=== PATIENT | male | born 1930 | race Caucasian/White ===

== ENCOUNTER 2017-07-12 13:52 | Emergency (ER) | payer MEDICARE ==
[~2017-07-12 13:52] MED LIST: ASPI-611 PO; CLOP75TA35 PO; MULT-1074 PO; NITR0.4T51 SL
[2017-07-12 15:46] LABS: BASOPHILS % (AUTO) 0.5 % (0-1); EOSINOPHILS # (AUTO) 0.1 X10'3 (0-0.9); EOSINOPHILS % (AUTO) 2.2 % (0-6); HEMATOCRIT 43.1 % (42.0-52.0); HEMOGLOBIN 15.2 g/dl (14.0-17.9); LYMPHOCYTES # (AUTO) 1.1 X10'3 (1.1-4.8); LYMPHOCYTES % (AUTO) 27.5 % (21-51); MEAN CORPUSCULAR HEMOGLOBIN 33.6 PG (27.0-31.0); MEAN CORPUSCULAR HGB CONC 35.3 % (33.0-36.5); MEAN PLATELET VOLUME 7.6 FL (7.4-10.4); MONOCYTES # (AUTO) 0.5 X10'3 (0-0.9); MONOCYTES % (AUTO) 11.7 % (2-12); NEUTROPHILS # (AUTO) 2.3 X10'3 (1.8-7.7); NEUTROPHILS % (AUTO) 58.1 % (42-75); PLATELET COUNT 141 X10'3 (140-440); RED BLOOD COUNT 4.53 X10'6 (4.70-6.10); RED CELL DISTRIBUTION WIDTH 12.7 % (11.5-14.5)
[2017-07-12 16:15] LABS: ALANINE AMINOTRANSFERASE 18 U/L (12-78); ALBUMIN 3.7 G/DL (3.4-5.0); ALBUMIN/GLOBULIN RATIO 0.9 (1.1-1.5); ALKALINE PHOSPHATASE 85 IU/L (46-116); ANION GAP 6 (8-16); ASPARTATE AMINO TRANSFERASE 20 U/L (10-37); BILIRUBIN,TOTAL 0.4 MG/DL (0.1-1.0); BLOOD UREA NITROGEN 27 MG/DL (7-18); BUN/CREATININE RATIO 22.5 (5.4-32.0); CALCIUM 8.8 MG/DL (8.5-10.1); CHLORIDE 108 MMOL/L (99-107); ETHANOL < 0.010 GM/DL (0.0-0.010); GLUCOSE 112 MG/DL (70-104); POTASSIUM 4.6 MMOL/L (3.5-5.1); SODIUM 142 MMOL/L (135-145); TOTAL CARBON DIOXIDE 28.4 MMOL/L (24-32); TOTAL PROTEIN 7.6 G/DL (6.4-8.2); eGFR 57 ML/MIN
[2017-07-12 17:53] LABS: CLARITY,URINE Clear (Clear); COLOR,URINE Yellow (Yellow); GLUCOSE, URINE Negative (Neg); KETONES,URINE Negative (Neg); LEUKOCYTE ESTERASE ,URINE Negative (Neg); NITRITES, URINE Negative (Neg); OCCULT BLOOD,URINE Negative (Neg); PROTEIN,URINE Negative (Neg); UROBILINOGEN,URINE 0.2 E.U/dL (0.2-1.0)
[2017-07-12 17:54] LABS: UA COLLECTION TYPE CLN CATCH MIDSTREAM
[2017-07-12 18:02] LABS: URINE AMPHETAMINE SCREEN NEGATIVE (Neg); URINE BARBITUATE SCREEN NEGATIVE (Neg); URINE BENZODIAZEPINES SCREEN NEGATIVE (Neg); URINE CANNABINOID SCREEN NEGATIVE (Neg); URINE COCAINE SCREEN NEGATIVE (Neg); URINE METHADONE SCREEN NEGATIVE (Neg); URINE OPIATE SCREEN NEGATIVE (Neg); URINE PHENCYCLIDINE SCREEN NEGATIVE (Neg)
[2017-07-12 18:12] VITALS: BP 138/81
[2017-07-12] MEDS ORDERED: nitroGLYCERIN 0.4mg SUBLingual tab SL PRN (19:40)
[2017-07-12] MEDS ORDERED: MULT-1074 PO (21:30)
[2017-07-13] MEDS ORDERED: aspirin 81mg tab.chew PO SCH (08:00)
[2017-07-13] MEDS ORDERED: multivitamins, therapeutics tablet PO SCH (08:00)
[2017-07-13] MEDS ORDERED: clopidogrel 75mg tablet PO SCH (08:00)
== END 2017-07-12 21:27 ==
LOC: ER 13:53
DX: R45.851 Suicidal ideations (principal); F43.0 Acute stress reaction; F43.20 Adjustment disorder, unspecified; I25.2 Old myocardial infarction; E78.00 Pure hypercholesterolemia, unspecified; I25.119 Atherosclerotic heart disease of native coronary artery with unspecified angina pectoris; Z79.82 Long term (current) use of aspirin
CPT/HCPCS: 36415; 80053; 80305; 80320; 81003; 84443; 84484; 85025; 93005; 99285

== ENCOUNTER 2017-07-12 20:10 | Inpatient (IN) | payer MEDICARE ==
[~2017-07-12] VITALS: Ht 165.1 cm; Wt 72.0 kg
[2017-07-12] MEDS ORDERED: nitroGLYCERIN 0.4mg SUBLingual tab SL PRN (21:20)
[2017-07-12] MEDS ORDERED: hydrOXYzine 10 MG tablet PO PRN (21:25)
[2017-07-12] MEDS ORDERED: acetaminophen 325mg tablet PO PRN (21:25)
[2017-07-12] MEDS ORDERED: mag hydrox/Alum hydrox/simeth 30ml oral suspension PO PRN (21:25)
[2017-07-12] MEDS ORDERED: magnesium hydroxide 30ml (MOM) UD suspension PO PRN (21:25)
[2017-07-12] MEDS ORDERED: traZODone 50mg tablet PO PRN (21:25)
[2017-07-12] MEDS ORDERED: hydrOXYzine 25 MG tablet PO PRN (21:25)
[2017-07-12] MEDS ORDERED: MULT-1074 PO (21:30)
[2017-07-12 23:50] VITALS: BP 137/73
[2017-07-13 07:47] VITALS: BP 138/63
[2017-07-13] MEDS: clopidogrel 75mg tablet PO SCH (08:20)
[2017-07-13] MEDS: multivitamins, therapeutics tablet PO SCH (08:20)
[2017-07-13] MEDS: aspirin 81mg tab.chew PO SCH (08:20)
[2017-07-13 19:33] VITALS: BP 132/61
[2017-07-13] MEDS: carVEDilol 3.125mg tablet PO SCH (21:44)
[2017-07-14 08:00] VITALS: BP 137/65
[2017-07-14] MEDS: carVEDilol 3.125mg tablet PO SCH ×2 (08:00→20:00)
[2017-07-14] MEDS: clopidogrel 75mg tablet PO SCH (08:35)
[2017-07-14] MEDS: multivitamins, therapeutics tablet PO SCH (08:35)
[2017-07-14] MEDS: aspirin 81mg tab.chew PO SCH (08:35)
[2017-07-14 20:00] VITALS: BP 116/65
[2017-07-15 08:00] VITALS: BP 99/56
[2017-07-15] MEDS: multivitamins, therapeutics tablet PO SCH (08:00)
[2017-07-15] MEDS: carVEDilol 3.125mg tablet PO SCH ×2 (08:55→20:40)
[2017-07-15] MEDS: clopidogrel 75mg tablet PO SCH (08:55)
[2017-07-15] MEDS: aspirin 81mg tab.chew PO SCH (08:55)
[2017-07-15 19:45] VITALS: BP 120/60
[2017-07-16 08:00] VITALS: BP 137/64
[2017-07-16] MEDS: carVEDilol 3.125mg tablet PO SCH (08:00)
[2017-07-16] MEDS: multivitamins, therapeutics tablet PO SCH (08:00)
[2017-07-16] MEDS: clopidogrel 75mg tablet PO SCH (08:25)
[2017-07-16] MEDS: aspirin 81mg tab.chew PO SCH (08:25)
== END 2017-07-16 10:30 | disposition home or self-care (01) | DRG 880 ==
LOC: ADULT MH 20:10
PROVIDERS: ADMIT Psychiatry & Neurology Psychiatry; ATTEND Psychiatry & Neurology Psychiatry
DX: F41.9 Anxiety disorder, unspecified (principal); R45.851 Suicidal ideations; E78.5 Hyperlipidemia, unspecified; F32.9 Major depressive disorder, single episode, unspecified; I25.10 Atherosclerotic heart disease of native coronary artery without angina pectoris; Z95.5 Presence of coronary angioplasty implant and graft; Z79.82 Long term (current) use of aspirin; Z79.899 Other long term (current) drug therapy
CPT/HCPCS: 87070; 99285

== ENCOUNTER 2018-04-16 05:15 | Emergency (ER) | payer MEDICARE, OTHER ==
[~2018-04-16] VITALS: Ht 157.5 cm; Wt 70.0 kg
[2018-04-16 05:24] VITALS: BP 152/86
== END 2018-04-16 06:12 | disposition home or self-care (01) ==
LOC: ER 05:16
DX: M79.671 Pain in right foot (principal); M79.672 Pain in left foot; I25.10 Atherosclerotic heart disease of native coronary artery without angina pectoris; E78.00 Pure hypercholesterolemia, unspecified; I25.2 Old myocardial infarction; Z95.5 Presence of coronary angioplasty implant and graft; Z79.82 Long term (current) use of aspirin; Z79.899 Other long term (current) drug therapy
CPT/HCPCS: 99281

== ENCOUNTER 2018-06-28 11:38 | Inpatient (IN) | payer MEDICARE, OTHER ==
[~2018-06-28] VITALS: Ht 172.7 cm; Wt 72.0 kg
[2018-06-28 12:54] LABS: BASOPHILS # (AUTO) 0.1 X10'3 (0-0.2); EOSINOPHILS # (AUTO) 0.1 X10'3 (0-0.9); EOSINOPHILS % (AUTO) 1.4 % (0-6); HEMATOCRIT 43.7 % (42.0-52.0); HEMOGLOBIN 14.3 g/dl (14.0-17.9); LYMPHOCYTES % (AUTO) 16.2 % (21-51); MEAN CORPUSCULAR HEMOGLOBIN 31.5 PG (27.0-31.0); MEAN CORPUSCULAR HGB CONC 32.8 % (33.0-36.5); MEAN CORPUSCULAR VOLUME 95.9 FL (78-98); MEAN PLATELET VOLUME 8.5 FL (7.4-10.4); MONOCYTES # (AUTO) 0.7 X10'3 (0-0.9); MONOCYTES % (AUTO) 11.7 % (2-12); NEUTROPHILS # (AUTO) 4.2 X10'3 (1.8-7.7); NEUTROPHILS % (AUTO) 69.7 % (42-75); PLATELET COUNT 198 X10'3 (140-440); RED BLOOD COUNT 4.55 X10'6 (4.70-6.10); RED CELL DISTRIBUTION WIDTH 12.5 % (11.5-14.5); WHITE BLOOD COUNT 6.2 X10'3 (4.5-11.0)
[2018-06-28 13:03] LABS: PARTIAL THROMBOPLASTIN TIME 26 SECONDS (22-32); PROTHROMBIN TIME 10.5 SECONDS (9.0-12.0)
[2018-06-28 13:04] LABS: ALANINE AMINOTRANSFERASE 23 U/L (12-78); ALBUMIN 3.1 G/DL (3.4-5.0); ALBUMIN/GLOBULIN RATIO 0.7 (1.1-1.5); ALKALINE PHOSPHATASE 90 IU/L (46-116); ANION GAP 11 (8-16); ASPARTATE AMINO TRANSFERASE 19 U/L (10-37); BILIRUBIN,TOTAL 0.4 MG/DL (0.1-1.0); BLOOD UREA NITROGEN 38 MG/DL (7-18); BUN/CREATININE RATIO 31.1 (5.4-32.0); CALCIUM 8.8 MG/DL (8.5-10.1); CHLORIDE 105 MMOL/L (99-107); CREATININE 1.22 MG/DL (0.60-1.10); GLUCOSE 100 MG/DL (70-104); POTASSIUM 4.1 MMOL/L (3.5-5.1); SODIUM 143 MMOL/L (135-145); TOTAL CARBON DIOXIDE 27.5 MMOL/L (24-32); TOTAL PROTEIN 7.5 G/DL (6.4-8.2); eGFR 56 ML/MIN
[2018-06-28 13:16] LABS: CLARITY,URINE CLEAR (Clear); COLOR,URINE YELLOW (Yellow); GLUCOSE, URINE NEGATIVE (Neg); KETONES,URINE NEGATIVE (Neg); LEUKOCYTE ESTERASE ,URINE NEGATIVE (Neg); NITRITES, URINE NEGATIVE (Neg); OCCULT BLOOD,URINE TRACE-LYSED (Neg); PH,URINE 5.5 (4.8-8.0); PROTEIN,URINE NEGATIVE (Neg); UROBILINOGEN,URINE 0.2 E.U/dL (0.2-1.0)
[2018-06-28 13:21] LABS: UA COLLECTION TYPE CLN CATCH MIDSTREAM
[2018-06-28 13:22] LABS: BACTERIA,URINE NONE SEEN /HPF (Neg); MUCUS STRANDS NONE SEEN /LPF (Neg); RBC,URINE 0-2 /HPF (0-2); SQUAMOUS EPITHELIAL CELL,UR NONE SEEN /LPF (FEW); WBC,URINE NONE SEEN /HPF (0-4)
[2018-06-28] MEDS ORDERED: magnesium hydroxide 30ml (MOM) UD suspension PO PRN (14:05)
[2018-06-28] MEDS ORDERED: ondansetron/PF 4mg/2ml inj IV PRN (14:05)
[2018-06-28] MEDS ORDERED: mag hydrox/Alum hydrox/simeth 30ml oral suspension PO PRN (14:05)
[2018-06-28] MEDS ORDERED: HYDROcodone/acetaminophen 5mg/325mg tablet PO PRN (14:05)
[2018-06-28] MEDS ORDERED: acetaminophen 325mg tablet PO PRN ×2 (14:05)
--- NOTE | 2018-06-28 18:54 | NUR ---
REPORT CALLED TO BALJIND[facility] ON SURGICAL FLOOR.
--- NOTE | 2018-06-28 18:54 | NUR ---
Received report from JEANNETTE Albrecht. Awaiting patient arrival to the floor.
--- NOTE | 2018-06-28 19:00 | NUR ---
Patient arrived to the floor via gurney. Placed in room 347B. Patient is awake, but pleasantly confused on room air, in no apparent distress. Denies pain or discomfort. Call light and items of frequent use within reach, will continue to monitor.
[2018-06-28 20:00] VITALS: BP 148/70
--- NOTE | 2018-06-28 21:50 | NUR ---
Attempted to DART patient - patient goes off tangent when asked questions and does not answer appropriately.
[2018-06-29] VITALS: BP 128/59
[2018-06-29 06:15] LABS: ALANINE AMINOTRANSFERASE 18 U/L (12-78); ALBUMIN 2.5 G/DL (3.4-5.0); ALBUMIN/GLOBULIN RATIO 0.6 (1.1-1.5); ALKALINE PHOSPHATASE 78 IU/L (46-116); ANION GAP 8 (8-16); ASPARTATE AMINO TRANSFERASE 16 U/L (10-37); BILIRUBIN,TOTAL 0.4 MG/DL (0.1-1.0); BLOOD UREA NITROGEN 35 MG/DL (7-18); BUN/CREATININE RATIO 28.5 (5.4-32.0); CALCIUM 8.6 MG/DL (8.5-10.1); CHLORIDE 108 MMOL/L (99-107); CREATININE 1.23 MG/DL (0.60-1.10); GLUCOSE 92 MG/DL (70-104); POTASSIUM 4.1 MMOL/L (3.5-5.1); SODIUM 145 MMOL/L (135-145); TOTAL CARBON DIOXIDE 29.4 MMOL/L (24-32); TOTAL PROTEIN 6.5 G/DL (6.4-8.2); eGFR 55 ML/MIN
[2018-06-29 06:16] LABS: BASOPHILS % (AUTO) 0.5 % (0-1); EOSINOPHILS # (AUTO) 0.3 X10'3 (0-0.9); EOSINOPHILS % (AUTO) 5.4 % (0-6); HEMATOCRIT 38.1 % (42.0-52.0); HEMOGLOBIN 12.9 g/dl (14.0-17.9); LYMPHOCYTES # (AUTO) 1.3 X10'3 (1.1-4.8); LYMPHOCYTES % (AUTO) 22.9 % (21-51); MEAN CORPUSCULAR HEMOGLOBIN 32.4 PG (27.0-31.0); MEAN CORPUSCULAR HGB CONC 33.8 % (33.0-36.5); MEAN CORPUSCULAR VOLUME 95.9 FL (78-98); MEAN PLATELET VOLUME 8.7 FL (7.4-10.4); MONOCYTES # (AUTO) 0.8 X10'3 (0-0.9); MONOCYTES % (AUTO) 14.6 % (2-12); NEUTROPHILS # (AUTO) 3.2 X10'3 (1.8-7.7); NEUTROPHILS % (AUTO) 56.6 % (42-75); PLATELET COUNT 180 X10'3 (140-440); RED BLOOD COUNT 3.97 X10'6 (4.70-6.10); RED CELL DISTRIBUTION WIDTH 12.1 % (11.5-14.5); WHITE BLOOD COUNT 5.6 X10'3 (4.5-11.0)
--- NOTE | 2018-06-29 06:47 | NUR ---
Problems reprioritized. Patient report given, questions answered & plan of care reviewed with JEANNETTE Mercado.
--- NOTE | 2018-06-29 07:11 | NUR ---
Patient in room [facility]. I have received report from Joie MACHADO and had the opportunity to ask questions and assume patient care.
[2018-06-29] MEDS: clopidogrel 75mg tablet PO SCH (07:31)
[2018-06-29 08:00] VITALS: BP 109/56
[2018-06-29] MEDS ORDERED: enoxaparin 40mg/0.4ml syringe SUBCUT SCH (08:00)
[2018-06-29] MEDS ORDERED: CHOL100034 PO (10:46)
[2018-06-29 11:00] VITALS: BP 130/68
--- NOTE | 2018-06-29 18:03 | NUR ---
Received report from JEANNETTE Mercado. Patient is awake and alert on room air, in no apparent distress. Sitting up, having meal. Call light and items of frequent use within reach. Will continue to monitor.
--- NOTE | 2018-06-29 18:42 | NUR ---
Problems reprioritized. Patient report given, questions answered & plan of care reviewed with Joie MACHADO.
[2018-06-29 20:00] VITALS: BP 108/57
[2018-06-30] VITALS: BP 127/53
--- NOTE | 2018-06-30 01:15 | NUR ---
Patient in room [facility]. I have received report from JEANNETTE Salter and had the opportunity to ask questions and assume patient care.
--- NOTE | 2018-06-30 02:00 | NUR ---
Jordon Hanley RN have reviewed JEANNETTE Salter physical assessment charting and agree with her documentation.
[2018-06-30 05:22] LABS: BASOPHILS % (AUTO) 0.7 % (0-1); EOSINOPHILS # (AUTO) 0.4 X10'3 (0-0.9); EOSINOPHILS % (AUTO) 5.8 % (0-6); HEMOGLOBIN 13.1 g/dl (14.0-17.9); LYMPHOCYTES # (AUTO) 1.4 X10'3 (1.1-4.8); LYMPHOCYTES % (AUTO) 23.4 % (21-51); MEAN CORPUSCULAR HEMOGLOBIN 31.8 PG (27.0-31.0); MEAN CORPUSCULAR HGB CONC 32.9 % (33.0-36.5); MEAN CORPUSCULAR VOLUME 96.7 FL (78-98); MEAN PLATELET VOLUME 8.4 FL (7.4-10.4); MONOCYTES # (AUTO) 0.8 X10'3 (0-0.9); MONOCYTES % (AUTO) 12.5 % (2-12); NEUTROPHILS # (AUTO) 3.5 X10'3 (1.8-7.7); NEUTROPHILS % (AUTO) 57.6 % (42-75); PLATELET COUNT 187 X10'3 (140-440); RED BLOOD COUNT 4.13 X10'6 (4.70-6.10); RED CELL DISTRIBUTION WIDTH 12.2 % (11.5-14.5); WHITE BLOOD COUNT 6.1 X10'3 (4.5-11.0)
[2018-06-30 05:38] LABS: ALANINE AMINOTRANSFERASE 17 U/L (12-78); ALBUMIN 2.5 G/DL (3.4-5.0); ALBUMIN/GLOBULIN RATIO 0.6 (1.1-1.5); ALKALINE PHOSPHATASE 79 IU/L (46-116); ANION GAP 7 (8-16); ASPARTATE AMINO TRANSFERASE 16 U/L (10-37); BILIRUBIN,TOTAL 0.3 MG/DL (0.1-1.0); BLOOD UREA NITROGEN 34 MG/DL (7-18); BUN/CREATININE RATIO 23.6 (5.4-32.0); CALCIUM 8.4 MG/DL (8.5-10.1); CHLORIDE 105 MMOL/L (99-107); CHOL/HDL RATIO 3.6 (0.00-4.99); CHOLESTEROL 146 MG/DL (0-200); CREATININE 1.44 MG/DL (0.60-1.10); GLUCOSE 96 MG/DL (70-104); HDL CHOLESTEROL 41 MG/DL (35-60); LDL CHOLESTEROL 95 MG/DL (50-100); POTASSIUM 4.3 MMOL/L (3.5-5.1); SODIUM 139 MMOL/L (135-145); TOTAL CARBON DIOXIDE 26.6 MMOL/L (24-32); TOTAL PROTEIN 6.6 G/DL (6.4-8.2); TRIGLYCERIDES 83 MG/DL (20-135); eGFR 46 ML/MIN
--- NOTE | 2018-06-30 06:19 | NUR ---
Problems reprioritized. Patient report given, questions answered & plan of care reviewed with JEANNETTE Mercado.
[2018-06-30] MEDS: clopidogrel 75mg tablet PO SCH (07:01)
[2018-06-30 07:49] VITALS: BP 120/43
[2018-06-30 11:21] VITALS: BP 101/56
[2018-06-30] MEDS ORDERED: ziprasidone IM 20mg inj **IM only IM ONE (16:00)
--- NOTE | 2018-06-30 16:30 | NUR ---
pt became agitated and attempted to hit nursing staff. pt would not return to room was out by the elevators yelling profanity. security called and help escort pt to room. notified and new order given.
[2018-06-30] MEDS ORDERED: ziprasidone IM 20mg inj **IM only IM PRN (17:10)
--- NOTE | 2018-06-30 18:28 | NUR ---
Problems reprioritized. Patient report given, questions answered & plan of care reviewed with Keaton MACHADO.
[2018-06-30 18:50] VITALS: BP 115/52
[2018-07-01] VITALS: BP 110/64
[2018-07-01 05:08] LABS: BASOPHILS % (AUTO) 0.6 % (0-1); EOSINOPHILS # (AUTO) 0.4 X10'3 (0-0.9); EOSINOPHILS % (AUTO) 6.5 % (0-6); HEMATOCRIT 37.3 % (42.0-52.0); HEMOGLOBIN 12.7 g/dl (14.0-17.9); LYMPHOCYTES # (AUTO) 1.3 X10'3 (1.1-4.8); LYMPHOCYTES % (AUTO) 23.1 % (21-51); MEAN CORPUSCULAR HEMOGLOBIN 32.6 PG (27.0-31.0); MEAN CORPUSCULAR VOLUME 95.9 FL (78-98); MEAN PLATELET VOLUME 8.1 FL (7.4-10.4); MONOCYTES # (AUTO) 0.8 X10'3 (0-0.9); NEUTROPHILS # (AUTO) 3.1 X10'3 (1.8-7.7); NEUTROPHILS % (AUTO) 55.8 % (42-75); PLATELET COUNT 179 X10'3 (140-440); RED BLOOD COUNT 3.89 X10'6 (4.70-6.10); RED CELL DISTRIBUTION WIDTH 13.2 % (11.5-14.5); WHITE BLOOD COUNT 5.5 X10'3 (4.5-11.0)
[2018-07-01 05:19] LABS: ALANINE AMINOTRANSFERASE 16 U/L (12-78); ALBUMIN 2.3 G/DL (3.4-5.0); ALBUMIN/GLOBULIN RATIO 0.6 (1.1-1.5); ALKALINE PHOSPHATASE 77 IU/L (46-116); ANION GAP 6 (8-16); ASPARTATE AMINO TRANSFERASE 15 U/L (10-37); BILIRUBIN,TOTAL 0.2 MG/DL (0.1-1.0); BLOOD UREA NITROGEN 36 MG/DL (7-18); BUN/CREATININE RATIO 27.7 (5.4-32.0); CALCIUM 8.3 MG/DL (8.5-10.1); CHLORIDE 107 MMOL/L (99-107); GLUCOSE 97 MG/DL (70-104); POTASSIUM 4.1 MMOL/L (3.5-5.1); SODIUM 140 MMOL/L (135-145); TOTAL CARBON DIOXIDE 27.3 MMOL/L (24-32); TOTAL PROTEIN 6.3 G/DL (6.4-8.2); eGFR 52 ML/MIN
--- NOTE | 2018-07-01 06:30 | NUR ---
Patient in room [facility]. I have received report from JEANNETTE Pugh and had the opportunity to ask questions and assume patient care.
--- NOTE | 2018-07-01 06:32 | NUR ---
Problems reprioritized. Patient report given, questions answered & plan of care reviewed with ELINOR. Addendum: 07/01/18 at 0634 by Dony Tomas RN Amended: Links added.
[2018-07-01 07:00] VITALS: BP 112/60
[2018-07-01] MEDS: clopidogrel 75mg tablet PO SCH (08:21)
[2018-07-01 11:00] VITALS: BP 95/53
[2018-07-01 18:00] VITALS: BP 116/59
--- NOTE | 2018-07-01 18:30 | NUR ---
Problems reprioritized. Patient report given, questions answered & plan of care reviewed with JEANNETTE Dee.
--- NOTE | 2018-07-01 18:31 | NUR ---
Patient in room [facility]. I have received report from JEANNETTE Cabrera and had the opportunity to ask questions and assume patient care.
[2018-07-02] VITALS: BP 101/55
--- NOTE | 2018-07-02 06:03 | NUR ---
Problems reprioritized. Patient report given, questions answered & plan of care reviewed with JEANNETTE Ferreira.
--- NOTE | 2018-07-02 06:39 | NUR ---
Patient in room [facility]. I have received report from JEANNETTE Dee and had the opportunity to ask questions and assume patient care.
[2018-07-02] MEDS: clopidogrel 75mg tablet PO SCH (08:00)
--- NOTE | 2018-07-02 08:06 | NUR ---
Pt refusing to have vital signs taken or labs drawn. Pt also refusing to eat breakfast, stating 'you can't force feed to me breakfast, it's not going to work so don't even try'. Will notify MD and continue to monitor.
--- NOTE | 2018-07-02 09:12 | NUR ---
Pt refusing to take plavix or to allow me to assess him. Pt states, with eyes closed and facing away from me, 'I am being held here against my will. The only thing you can say that will get my attention is that I'm getting out of here.' I educated him that the plavix is for his benefit and that by not taking it, he is putting himself at risk to develop a blood clot and pt continues to refuse. Will continue to monitor pt.
--- NOTE | 2018-07-02 10:56 | NUR ---
Initial: Pt admitted with ALOC. Per MD progress notes CM states patient's neighbors are working on conservatorship for pt. Pt currently on regular diet with documented PO intake 75-100% throughout LOS meeting nutrient needs. Noted that pt refused breakfast this AM, per physical assessment pt resistive to care and upset this AM. LBM 07/01. No edema or wounds. Will continue to follow. Recommendations: 1) Continue with regular diet 2) Wt per rx Addendum: 07/02/18 at [address] Amended: Links added.
--- NOTE | 2018-07-02 18:24 | NUR ---
Problems reprioritized. Patient report given, questions answered & plan of care reviewed with JEANNETTE Dee.
--- NOTE | 2018-07-02 18:25 | NUR ---
Patient in room [facility]. I have received report from Jefe Ferreira and had the opportunity to ask questions and assume patient care.
--- NOTE | 2018-07-02 22:21 | NUR ---
Patient refused 1800 vitals.
--- NOTE | 2018-07-02 23:51 | NUR ---
Pt refused 0000 vitals.
--- NOTE | 2018-07-03 00:19 | NUR ---
Problems reprioritized. Patient report given, questions answered & plan of care reviewed with JEANNETTE Vilchis.
--- NOTE | 2018-07-03 06:04 | NUR ---
Patient in room [facility]. I have received report from JEANNETTE Vilchis and had the opportunity to ask questions and assume patient care.
--- NOTE | 2018-07-03 06:35 | NUR ---
Problems reprioritized. Patient report given, questions answered & plan of care reviewed with Hanna MACHADO. Addendum: 07/03/18 at 0635 by Mame Enriquez RN Amended: Links added.
[2018-07-03 07:32] VITALS: BP 105/54
[2018-07-03] MEDS: clopidogrel 75mg tablet PO SCH (08:00)
--- NOTE | 2018-07-03 08:01 | NUR ---
Pt refusing AM medications, physical assessment, and breakfast. Pt states 'I don't want breakfast, lunch, or dinner.' Pt states 'why should I take that medicine when I'm going to kill myself'. When questioned if he has a plan to kill himself pt states 'No, I don't have a plan. I'm just not going to eat'. Pt continues to state 'what would you do if you were in my shoes? I am a slave here.' I explained to pt that it is necessary that we ensure he has a safe home environment before we are able to discharge him home. Pt states 'how am I going to get from here to home? How is that going to happen?' I explained that we have been in communication with his neighbors in regards to his care, and when we are able to discharge him, they will come and pick him up. Pt continues to state 'this is bullshit. What would you do if you were in my shoes?' Will inform hospitalist and continue to monitor.
[2018-07-03 11:03] VITALS: BP 102/50
--- NOTE | 2018-07-03 13:20 | NUR ---
Pt threw water pitcher, cup, and basin at the wall outside his room. When questioned as to why he did it, pt stated 'he gets to go home and I don't.' Pt refused to open eyes or look at me during conversation. Will continue to monitor.
[2018-07-03 18:00] VITALS: BP 125/63
--- NOTE | 2018-07-03 18:30 | NUR ---
pt walked back to his room four times. he would say things like "I hope you are not going to stop me... I want to and I am going to kill myself." He said that he is going to "fall on his face and not eat and just ." Called Dr. Fagan and made him aware and new orders given. will continue to monitor.
--- NOTE | 2018-07-03 18:31 | NUR ---
Patient in room [facility]. I have received report from Hanna MACHADO and had the opportunity to ask questions and assume patient care.
--- NOTE | 2018-07-03 18:39 | NUR ---
Problems reprioritized. Patient report given, questions answered & plan of care reviewed with JEANNETTE Rodney.
[2018-07-04] VITALS: BP 118/58
--- NOTE | 2018-07-04 06:45 | NUR ---
Problems reprioritized. Patient report given, questions answered & plan of care reviewed with Hanna MACHADO.
[2018-07-04 08:00] VITALS: BP 111/59
[2018-07-04] MEDS: clopidogrel 75mg tablet PO SCH (09:18)
--- NOTE | 2018-07-04 15:14 | NUR ---
Pt discharged to home with all belongings in private vehicle, accompanied by friends. Discharge instructions reviewed, medications reviewed. No IV to DC. Pt escorted to front lobby via wheelchair by PCT.
== END 2018-07-04 15:15 | disposition home or self-care (01) | DRG 640 ==
LOC: ER 11:39 → ED HOLD 14:02 → EDBEDREQ 18:33 → SUR 3N 19:00
PROVIDERS: ADMIT Internal Medicine; ATTEND Internal Medicine
DX: E86.9 Volume depletion, unspecified (principal); E43 Unspecified severe protein-calorie malnutrition; F05 Delirium due to known physiological condition; F01.50 Vascular dementia, unspecified severity, without behavioral disturbance, psychotic disturbance, mood disturbance, and anxiety; I25.10 Atherosclerotic heart disease of native coronary artery without angina pectoris; E78.5 Hyperlipidemia, unspecified; N18.9 Chronic kidney disease, unspecified; E78.00 Pure hypercholesterolemia, unspecified; Z95.5 Presence of coronary angioplasty implant and graft; I25.2 Old myocardial infarction; Z79.02 Long term (current) use of antithrombotics/antiplatelets
CPT/HCPCS: 36415; 70450; 71045; 80053; 80061; 81001; 85025; 85610; 85730; 87070; 93005; 99285; G0378; J1650; J3486

== ENCOUNTER 2018-07-13 10:28 | Emergency (ER) | payer MEDICARE, OTHER ==
[~2018-07-13] VITALS: Ht 157.5 cm; Wt 63.6 kg
[~2018-07-13 10:28] MED LIST changes: -ASPI-611 PO; +CHOL100034 PO
[2018-07-13 11:01] LABS: BASOPHILS % (AUTO) 0.6 % (0-1); EOSINOPHILS # (AUTO) 0.3 X10'3 (0-0.9); EOSINOPHILS % (AUTO) 8.2 % (0-6); HEMATOCRIT 38.5 % (42.0-52.0); HEMOGLOBIN 13.2 g/dl (14.0-17.9); LYMPHOCYTES # (AUTO) 1.2 X10'3 (1.1-4.8); LYMPHOCYTES % (AUTO) 29.8 % (21-51); MEAN CORPUSCULAR HEMOGLOBIN 32.8 PG (27.0-31.0); MEAN CORPUSCULAR HGB CONC 34.2 % (33.0-36.5); MEAN CORPUSCULAR VOLUME 95.8 FL (78-98); MEAN PLATELET VOLUME 7.8 FL (7.4-10.4); MONOCYTES # (AUTO) 0.5 X10'3 (0-0.9); MONOCYTES % (AUTO) 12.2 % (2-12); NEUTROPHILS % (AUTO) 49.2 % (42-75); PLATELET COUNT 167 X10'3 (140-440); RED BLOOD COUNT 4.02 X10'6 (4.70-6.10); WHITE BLOOD COUNT 4.1 X10'3 (4.5-11.0)
[2018-07-13 11:16] LABS: ALANINE AMINOTRANSFERASE 17 U/L (12-78); ALBUMIN 2.9 G/DL (3.4-5.0); ALBUMIN/GLOBULIN RATIO 0.7 (1.1-1.5); ALKALINE PHOSPHATASE 76 IU/L (46-116); ANION GAP 6 (8-16); ASPARTATE AMINO TRANSFERASE 16 U/L (10-37); BILIRUBIN,TOTAL 0.3 MG/DL (0.1-1.0); BLOOD UREA NITROGEN 31 MG/DL (7-18); BUN/CREATININE RATIO 27.2 (5.4-32.0); CALCIUM 8.4 MG/DL (8.5-10.1); CHLORIDE 105 MMOL/L (99-107); CREATININE 1.14 MG/DL (0.60-1.10); GLUCOSE 94 MG/DL (70-104); POTASSIUM 4.3 MMOL/L (3.5-5.1); SODIUM 140 MMOL/L (135-145); TOTAL CARBON DIOXIDE 28.7 MMOL/L (24-32); TOTAL PROTEIN 6.9 G/DL (6.4-8.2); eGFR 60 ML/MIN
[2018-07-13 11:21] LABS: PARTIAL THROMBOPLASTIN TIME 26 SECONDS (22-32); PROTHROMBIN TIME 10.6 SECONDS (9.0-12.0)
--- NOTE | 2018-07-13 13:00 | NUR ---
patient given meal.
[2018-07-13 14:23] VITALS: BP 138/59
--- NOTE | 2018-07-13 14:25 | NUR ---
case management called for consult. Patient has no ride home. Patient states he has no food in house.
--- NOTE | 2018-07-13 15:01 | NUR ---
Yumi from case managment called and updated, she is going to talk with SS.
--- NOTE | 2018-07-13 15:11 | NUR ---
case managment at bedside.
--- NOTE | 2018-07-13 15:45 | NUR ---
cab called for patient to go home per case managmentYumi.
--- NOTE | 2018-07-13 16:10 | NUR ---
SPOKE WITH PATIENT. HE DOES NOT HAVE A RIDE HOME. NO FAMILY OR FRIEND AVAILABLE. SPOKE TO OG POOL AND SHE AUTHORIZED FOR A CAB TO TRANSPORT
== END 2018-07-13 16:28 | disposition home or self-care (01) ==
LOC: ER 10:28
DX: R07.9 Chest pain, unspecified (principal); R60.0 Localized edema; E78.00 Pure hypercholesterolemia, unspecified; I25.2 Old myocardial infarction; I25.10 Atherosclerotic heart disease of native coronary artery without angina pectoris; Z60.2 Problems related to living alone; Z98.61 Coronary angioplasty status; Z79.899 Other long term (current) drug therapy
CPT/HCPCS: 36415; 71045; 80053; 84484; 85025; 85610; 85730; 93005; 99284

== ENCOUNTER 2018-08-04 00:43 | Emergency (ER) | payer MEDICARE, OTHER ==
[~2018-08-04] VITALS: Ht 177.8 cm; Wt 80.0 kg
[2018-08-04 00:46] VITALS: BP 135/68
[2018-08-04 02:39] LABS: BASOPHILS % (AUTO) 1.1 % (0-1); EOSINOPHILS # (AUTO) 0.2 X10'3 (0-0.9); EOSINOPHILS % (AUTO) 5.1 % (0-6); HEMATOCRIT 38.5 % (42.0-52.0); HEMOGLOBIN 12.7 g/dl (14.0-17.9); LYMPHOCYTES # (AUTO) 1.2 X10'3 (1.1-4.8); LYMPHOCYTES % (AUTO) 29.5 % (21-51); MEAN CORPUSCULAR HGB CONC 33.1 g/dL (33.0-36.5); MEAN CORPUSCULAR VOLUME 99.8 FL (78-98); MEAN PLATELET VOLUME 7.9 FL (7.4-10.4); MONOCYTES # (AUTO) 0.6 X10'3 (0-0.9); MONOCYTES % (AUTO) 14.3 % (2-12); NEUTROPHILS # (AUTO) 2.1 X10'3 (1.8-7.7); PLATELET COUNT 175 X10'3 (140-440); RED BLOOD COUNT 3.86 X10'6 (4.70-6.10); RED CELL DISTRIBUTION WIDTH 12.8 % (11.5-14.5); WHITE BLOOD COUNT 4.1 X10'3 (4.5-11.0)
[2018-08-04 02:49] LABS: PARTIAL THROMBOPLASTIN TIME 25 SECONDS (22-32); PROTHROMBIN TIME 10.4 SECONDS (9.0-12.0)
[2018-08-04 02:50] LABS: ALANINE AMINOTRANSFERASE 15 U/L (12-78); ALBUMIN 3.1 G/DL (3.4-5.0); ALBUMIN/GLOBULIN RATIO 0.8 (1.1-1.5); ALKALINE PHOSPHATASE 76 IU/L (46-116); ANION GAP 8 (8-16); ASPARTATE AMINO TRANSFERASE 18 U/L (10-37); BILIRUBIN,TOTAL 0.3 MG/DL (0.1-1.0); BLOOD UREA NITROGEN 21 MG/DL (7-18); BUN/CREATININE RATIO 17.8 (5.4-32.0); CALCIUM 8.5 MG/DL (8.5-10.1); CHLORIDE 106 MMOL/L (99-107); CREATININE 1.18 MG/DL (0.60-1.10); GLUCOSE 89 MG/DL (70-104); POTASSIUM 3.7 MMOL/L (3.5-5.1); SODIUM 142 MMOL/L (135-145); TOTAL CARBON DIOXIDE 28.5 MMOL/L (24-32); TOTAL PROTEIN 6.8 G/DL (6.4-8.2); eGFR 58 ML/MIN
[2018-08-04 02:58] LABS: LIPASE 81 U/L (73-393)
[2018-08-04] MEDS ORDERED: CEPH250T PO (03:10)
[2018-08-04] MEDS ORDERED: cephalexin 250mg capsule PO ONE (03:10)
[2018-08-04 03:48] LABS: CLARITY,URINE CLEAR (Clear); COLOR,URINE YELLOW (Yellow); GLUCOSE, URINE NEGATIVE (Neg); KETONES,URINE NEGATIVE (Neg); LEUKOCYTE ESTERASE ,URINE NEGATIVE (Neg); NITRITES, URINE NEGATIVE (Neg); OCCULT BLOOD,URINE NEGATIVE (Neg); PH,URINE 5.5 (4.8-8.0); PROTEIN,URINE NEGATIVE (Neg); UROBILINOGEN,URINE 0.2 E.U/dL (0.2-1.0)
[2018-08-04 03:51] LABS: UA COLLECTION TYPE CLN CATCH MIDSTREAM
--- NOTE | 2018-08-04 03:57 | NUR ---
Patient is awaiting social sciences lecturer consult for potential placement and then ready for discharge.
--- NOTE | 2018-08-04 08:50 | NUR ---
RECEIVED A CALL FROM [employer] ELISABETH... SHE STATED THAT THE POWER IS BACK ON AT THE HOUSE. STATED THAT THEY CAN COME PICK HIM UP BUT NOT UNTIL 1500 AFTER WORK.. SHE GAVE ME A PHONE NUMBER FOR KENDY MCNEIL [phone] WHO IS THE NATURAL RESOURCE SPECIALIST FOR [facility] [place]... [facility] BUT IT HAS TO BE CORDENATED THROUGH THEM.... I CALLED LEFT A MESSAGE FOR HER. I HAVE TRIED TO CONTACT OUR [employer] TO WORK ON THIS ISSUE... NO RESPONSE FROM THEM FOR 2 HOURS.
--- NOTE | 2018-08-04 10:29 | NUR ---
SPOKE WITH KENDY BROWNE... SHE IS GOING TO TRY TO GET A NURSE TO WRITE THE ORDER FROM TRANSPORT... SHE STATES THAT SHE WILL CALL ME BACK, BUT NOT FOR AT LEAST 1 HOUR.
--- NOTE | 2018-08-04 15:36 | NUR ---
called sajan sibley again... for transport.
== END 2018-08-04 16:24 | disposition home or self-care (01) ==
LOC: ER 00:43
DX: L03.116 Cellulitis of left lower limb (principal); L03.115 Cellulitis of right lower limb; F32.9 Major depressive disorder, single episode, unspecified; E78.00 Pure hypercholesterolemia, unspecified; I25.10 Atherosclerotic heart disease of native coronary artery without angina pectoris; R60.0 Localized edema; Z98.62 Peripheral vascular angioplasty status
CPT/HCPCS: 36415; 71045; 80053; 81003; 83605; 83690; 83735; 83880; 84484; 85025; 85610; 85730; 87040; 93005; 99284